=== PATIENT | female | born 1995 | race Caucasian/White ===

== ENCOUNTER 2020-07-25 07:54 | Outpatient (CLI) | payer OTHER ==
--- NOTE | 2020-07-25 10:34 | MRI ---
MRI ABDOMEN WITH AND WITHOUT CONTRAST: Date: 07/25/2020 INDICATION: History of abdominal pain since last 07/19/2020, with history of cholecystectomy. TECHNIQUE: Multiplanar, multisequence MR images were obtained of the abdomen with and without contrast utilizing 15 mL of MultiHance using MRCP protocol. No comparisons are available. FINDINGS: There is susceptibility artifact consistent with cholecystectomy clips within the gallbladder fossa. Common bile duct measures 3.6 mm. There is minimal intrahepatic biliary ductal dilatation likely rela lucita to the patient's cholecystectomy state. No suspicious focal signal abnormality is seen within the liver. No suspicious focal signal abnormality is seen within the pancreas, adrenal glands, spleen, o r kidneys. No free fluid or enlarged lymph nodes are evident. No suspicious abnormal region of enhanc ement is evident within the liver, pancreas, adrenal glands, or kidneys. No definite marrow signal ab normality or region of abnormal enhancement is seen within the visualized osseous structures. IMPRESSION: 1. No MR explanation for the patient's abdominal pain. 2. Cholecystectomy. POS: [facility]
[2020-07-25] MEDS ORDERED: Magnevist 469MG/ML 20 ML VIAL ONE (15:19)
== END 2020-07-25 07:55 | disposition home or self-care (01) ==
LOC: MRI 07:54
PROVIDERS: ATTEND Physician Assistant Medical
DX: R74.01 Elevation of levels of liver transaminase levels (principal); R10.13 Epigastric pain; Z90.49 Acquired absence of other specified parts of digestive tract
CPT/HCPCS: 74183; A9579